=== PATIENT | male | born 1955 | race Caucasian/White ===

== ENCOUNTER → 2017-03-03 | Outpatient (CLI) | payer BC ==
--- NOTE | 2017-03-03 15:47 | CR ---
EXAMINATION: Left elbow HISTORY: Epicondylitis COMPARISON: None TECHNIQUE: 3 views FINDINGS/IMPRESSION: No acute osseous abnormality, effusion, dislocation, or fracture identified. Esteban ne mineralization and joint spaces appear preserved. Moderate soft tissue swelling overlying the ole cranon.
== END ==
LOC: MW.CHORTHO 07:27
PROVIDERS: ATTEND Physician Assistant
DX: M77.10 Lateral epicondylitis, unspecified elbow (principal); M79.89 Other specified soft tissue disorders
CPT/HCPCS: 73080-26-LT; 73080-LT

== ENCOUNTER 2017-11-11 10:58 | Emergency (ER) | payer BC ==
--- NOTE | 2017-11-11 11:15 | EDM.PDOC ---
ED HPI GENERAL MEDICAL PROBLEM - General Chief Complaint: Upper Extremity Injury/Pain Stated Complaint: LEFT HAND SWOLLEN Time Seen by Provider: 11/11/17 11:13 Source of Information: Reports: Patient History Limitations: Reports: No Limitations - History of Present Illness INITIAL COMMENTS - FREE TEXT/NARRATIVE: HISTORY AND PHYSICAL: []61-year-old gentleman presenting with left hand swollen and painful History of Present Illness: []Patient was rolling up straps yesterday and noticed erythema and pain today Review of Systems: As per history of present illness and below otherwise all systems reviewed and negative. Past medical history: As per history of present illness and as reviewed below otherwise noncontributory. Surgical history: As per history of present illness and as reviewed below otherwise noncontributory. Social history: No reported history of drug or alcohol abuse. Family history: As per history of present illness and as reviewed below otherwise noncontributory. Physical exam: Alert and oriented gentleman speaking in full sentences without any shortness of breath HEENT: Atraumatic, normocehpalic, pupils reactive, negative for conjunctival pallor or scleral icterus, mucous membranes moist, throat clear, neck supple, nontender, trachea midline. Lungs: Clear to auscultation, breath sounds equal bilaterally, chest non tender. Heart: S1S2, regular, negative for clicks, rubs, or JVD. Abdomen: Soft, nondistended, nontender. Negative for masses or hepatossplenmegaly. Negative for costovertebral tenderness. Pelvis: Stable nontender. Genitourinary: Deferred. Rectal: Deferred Extremities: Edema noted to the dorsum of his left hand with erythema painful when moving parents with palpation of pulses intact arthritic joints noted to his knuckles negative for cords or calf pain. Neurovascular unremarkable. Neuro: Awake, alert, oriented. Cranial nerves II through XII unremarkable. Cerebellum unremarkable. Motor and sensory unremarkable throughout. Exam nonfocal. Discussed with patient the risks no bony abnormalities such as fractures or dislocations Diagnostics: [CBC ESR CMP hand x-ray] Therapeutics: [] Impression: [Hand pain minor osteoarthritis] Plan: [Discharged home Tylenol arthritis [id number] Follow-up with your primary care provider] Definitive disposition and diagnosis as appropriate pending reevaluation and review of above. Onset: Today, Sudden Duration: Day(s): (1) Location: Reports: Upper Extremity, Left Quality: Reports: Ache Severity: Moderate Improves with: Reports: None Worsens with: Reports: None Associated Symptoms: Reports: No Other Symptoms left hand Pain Score (Numeric/FACES): 3 - Related Data Allergies Allergy/AdvReac Type Severity Reaction Status Date / Time No Known Allergies Allergy Verified 11/11/17 11:07 Home Meds: Home Meds Gabapentin [Neurontin] 300 mg PO DAILY PRN 08/24/15 [History] Omeprazole [priLOSEC OTC] 1 tab PO DAILY 08/24/15 [History] Hydrocodone/Acetaminophen [Hydrocodon-Acetaminoph 7.5-325] 1 tab PO DAILY PRN [History] Past Medical History Gastrointestinal History: Reports: GERD Neurological History: Reports: Other (See Below) Other Neuro History: RLS - Past Surgical History Musculoskeletal Surgical History: Reports: Other (See Below) Social & Family History - Tobacco Use Smoking Status *Q: Current Every Day Smoker Years of Tobacco use: 30 Packs/Tins Daily: 0.5 Second Hand Smoke Exposure: Yes - Recreational Drug Use Recreational Drug Use: No Review of Systems - Review of Systems Review Of Systems: ROS reveals no pertinent complaints other than HPI. ED EXAM, GENERAL - Physical Exam Exam: See Below (See dictation) Course - Vital Signs Last Recorded V/S: Last Vital Signs Temp 36.6 C 11/11/17 11:04 Pulse 77 11/11/17 11:04 Resp 18 11/11/17 11:04 BP 163/76 H 11/11/17 11:04 Pulse Ox 96 11/11/17 11:04 - Orders/Labs/Meds Labs: Laboratory Tests 11/11/17 11/11/17 Range/Units 11:21 11:21 WBC 10.67 (4.0-11.0) K/uL RBC 4.44 L (4.50-5.90) M/uL Hgb 14.3 (13.0-17.0) g/dL Hct 40.3 (38.0-50.0) % MCV 90.8 (80.0-98.0) fL MCH 32.2 H (27.0-32.0) pg MCHC 35.5 (31.0-37.0) g/dL RDW Std Deviation 43.3 (28.0-62.0) fl RDW Coeff of Rekha 13 (11.0-15.0) % Plt Count 299 (150-400) K/uL MPV 9.60 (7.40-12.00) fL Neut % (Auto) 77.6 (48.0-80.0) % Lymph % (Auto) 14.2 L (16.0-40.0) % [place]ath % (Auto) 7.0 (0.0-15.0) % Eos % (Auto) 1.0 (0.0-7.0) % Baso % (Auto) 0.2 (0.0-1.5) % Neut # (Auto) 8.3 H (1.4-5.7) K/uL Lymph # (Auto) 1.5 (0.6-2.4) K/uL Erath # (Auto) 0.8 (0.0-0.8) K/uL Eos # (Auto) 0.1 (0.0-0.7) K/uL Baso # (Auto) 0.0 (0.0-0.1) K/uL Nucleated RBC % 0.0 /100WBC Nucleated RBCs # 0 K/uL ESR 1 (0-19) mm/hr Sodium 141 (136-146) mmol/L Potassium 3.8 (3.5-5.1) mmol/L Chloride 110 (98-110) mmol/L Carbon Dioxide 21 (21-31) mmol/L BUN 22 (6.0-23.0) mg/dL Creatinine 0.9 (0.6-1.5) mg/dL Est Cr Clr Drug Dosing 76.80 mL/min Estimated GFR (MDRD) > 60.0 ml/min Glucose 141 H (60-110) mg/dL Calcium 9.6 (8.8-10.8) mg/dL Total Bilirubin 0.6 (0.1-1.5) mg/dL AST 19 (5-40) IU/L ALT 17 (8-54) IU/L Alkaline Phosphatase 50 (40-150) Total Protein 7.1 (6.0-8.0) g/dL Albumin 4.3 (3.4-4.8) g/dL Globulin 2.8 (2.0-3.5) g/dL Albumin/Globulin Ratio 1.5 (1.3-2.8) Departure - Departure Time of Disposition: 12:22 Disposition: Home, Self-Care 01 Condition: Good Clinical Impression: Hand pain, left - Discharge Information Referrals: Rob Fraga MD [Primary Care Provider] - Forms: ED Department Discharge Additional Instructions: The following information is given to patients seen in the emergency department who are being discharged to home. This information is to outline your options for follow-up care. We provide all patients seen in our emergency department with a follow-up referral. The need for follow-up, as well as the timing and circumstances, are variable depending upon the specifics of your emergency department visit. If you don't have a primary care physician on staff, we will provide you with a referral. We always advise you to contact your personal physician following an emergency department visit to inform them of the circumstance of the visit and for follow-up with them and/or the need for any referrals to a consulting specialist. The emergency department will also refer you to a specialist when appropriate. This referral assures that you have the opportunity for followup care with a specialist. All of these measure are taken in an effort to provide you with optimal care, which includes your followup. Under all circumstances we always encourage you to contact your private physician who remains a resource for coordinating your care. When calling for followup care, please make the office aware that this follow-up is from your recent emergency room visit. If for any reason you are refused follow-up, please contact the [facility] emergency department at and asked to speak to the emergency department charge nurse. No fractures or dislocations were noted on your examination Indications are osteoarthritis is present the activity of using your hand the day before likely cause this pain Would recommend [id number] Tylenol arthritis Follow-up with your primary care provider this week
--- NOTE | 2017-11-11 11:47 | CR ---
Left hand Clinical history: Pain Comparison: None Findings: 2 views of the hand demonstrate that the bones are normally mineralized and joint spaces ar e well-preserved. There is no focal significant acute finding. No significant arthropathy or trauma. Impression: No significant abnormalities
[2017-11-11 11:55] LABS: CHLORIDE,CL 110 mmol/L (98-110); SODIUM,NA 141 mmol/L (136-146)
[2017-11-11 12:39] VITALS: BP 127/72
== END 2017-11-11 12:35 | disposition home or self-care (01) ==
LOC: MW.ED 10:58
DX: M19.042 Primary osteoarthritis, left hand (principal); F17.210 Nicotine dependence, cigarettes, uncomplicated; Z79.899 Other long term (current) drug therapy
CPT/HCPCS: 36415; 73120-26-LT; 73120-LT; 80053; 85025; 85652; 99283

== ENCOUNTER 2019-02-11 08:21 | Day surgery (SDC) | payer SELFPAY, BC ==
[~2019-02-11 08:21] MED LIST: Acetaminophen/HYDROcodone 325-5 MG Tab PO PRN; Bupivacaine 0.25%/EPINEPHrine 1:200,000 10 ML SDV INJECT ONE; Lactated Ringers 1,000 ML IV SCH; Lidocaine 2% 5 ML SDV ONE; Midazolam 1 MG/ML 2 ML SDV ONE; Propofol 200 MG/20 ML SDV ONE; ceFAZolin 2 GM in Premix Bag 1 BAG IV ONE; fentaNYL 100 MCG/2 ML SDV ONE
--- NOTE | 2019-02-11 09:16 | PCM.PREANE ---
Preanesthetic Assessment - Anesthesia/Transfusion/Family Hx Anesthesia History: Prior Anesthesia Without Reaction Family History of Anesthesia Reaction: No Transfusion History: No Prior Transfusion(s) Intubation History: Unknown - Review of Systems General: No Symptoms Pulmonary: No Symptoms Cardiovascular: No Symptoms Gastrointestinal: No Symptoms Neurological: No Symptoms Other: Reports: None - Physical Assessment O2 Sat by Pulse Oximetry: 99 Respiratory Rate: 16 Vital Signs: Last Vital Signs Temp 36.1 C 02/11/19 08:40 Pulse 67 02/11/19 08:40 Resp 16 02/11/19 08:40 BP 155/72 H 02/11/19 08:40 Pulse Ox 99 02/11/19 08:40 Height: 1.65 m Weight: 67.132 kg ASA Class: 2 Mental Status: Alert & Oriented x3 Airway Class: Mallampati = 2 Dentition: Reports: Normal Dentition, [place]s) (multiple crowns upper front) Thyro-Mental Finger Breadths: 3 Mouth Opening Finger Breadths: 3 ROM/Head Extension: Full Lungs: Clear to Auscultation, Normal Respiratory Effort Cardiovascular: Regular Rate, Regular Rhythm - Allergies Allergies/Adverse Reactions: Allergies Allergy/AdvReac Type Severity Reaction Status Date / Time No Known Allergies Allergy Unverified 02/08/19 07:57 - Blood Blood Available: No - Anesthesia Plan Pre-Op Medication Ordered: None - Acknowledgements Anesthesia Type Planned: MAC Pt an Appropriate Candidate for the Planned Anesthesia: Yes Alternatives and Risks of Anesthesia Discussed w Pt/Guardian: Yes Pt/Guardian Understands and Agrees with Anesthesia Plan: Yes PreAnesthesia Questionnaire HEENT History: Reports: Other (See Below) Other HEENT History: wears glasses Cardiovascular History: Reports: Hypertension Respiratory History: Reports: None Gastrointestinal History: Reports: GERD (under controle with prilosec) Genitourinary History: Reports: BPH, Pyelonephritis, Other (See Below) Other Genitourinary History: H&P states recent UTI due to ESBL producing escherichia coli Musculoskeletal History: Reports: Fracture Other Musculoskeletal History: hx fx ankle, Neurological History: Reports: Other (See Below) Other Neuro History: restless legs Psychiatric History: Reports: None Endocrine/Metabolic History: Reports: None Hematologic History: Reports: None Immunologic History: Reports: None Oncologic (Cancer) History: Reports: None Dermatologic History: Reports: None - Infectious Disease History Infectious Disease History: Reports: Chicken Pox - Past Surgical History Head Surgeries/Procedures: Reports: None HEENT Surgical History: Reports: Naso-Sinus Surgery, Tonsillectomy Cardiovascular Surgical History: Reports: None Respiratory Surgical History: Reports: None GI Surgical History: Reports: Appendectomy, Colonoscopy, Hernia, Inguinal Male Surgical History: Reports: None Endocrine Surgical History: Reports: None Neurological Surgical History: Reports: None Musculoskeletal Surgical History: Reports: Shoulder Surgery Other Musculoskeletal Surgeries/Procedures:: rt shoulder surgery x2, lt shoulder surgery x2, manipulation of shoulder x1 Oncologic Surgical History: Reports: None Dermatological Surgical History: Reports: None - SUBSTANCE USE Smoking Status *Q: Current Every Day Smoker Tobacco Use Within Last Twelve Months: Cigarettes Recreational Drug Use History: No - HOME MEDS Home Medications: Home Meds Gabapentin [Neurontin] 300 mg PO BID PRN 08/24/15 [History] Omeprazole [priLOSEC OTC] 1 tab PO DAILY 08/24/15 [History] Aspirin [Lo-Dose Aspirin EC] 81 mg PO DAILY 02/08/19 [History] Bone & Joint 1 tab PO ASDIRECTED 02/08/19 [History] Hydrocodone/Acetaminophen [Hydrocodon-Acetaminophn 10-325] 1 tab PO BEDTIME [History] Meloxicam 15 mg PO DAILY 02/08/19 [History] Turmeric Root Extract [Turmeric] 500 mg PO DAILY 02/08/19 [History] Ubidecarenone [Coq-10] 200 mg PO DAILY 02/08/19 [History] amLODIPine [Norvasc] 5 mg PO DAILY 02/08/19 [History] valACYclovir HCl [valACYclovir] 1 gm PO DAILY 02/08/19 [History] - CURRENT (IN HOUSE) MEDS Current Meds: Current Medications Hydrocodone Bitart/Acetaminophen (Weiner 325-5 Mg) 1 tab PO Q4H PRN PRN Reason: Pain Lactated Ringer's (Ringers, Lactated) 1,000 mls @ 125 mls/hr IV ASDIRECTED [facility] Last Admin: 02/11/19 08:46 Dose: 125 mls/hr Discontinued Medications Bupivacaine HCl/Epinephrine Bitart (Marcaine 0.25%/Epinephrine 1:200,000) 10 ml INJECT ONETIME ONE Stop: 02/11/19 08:01 Fentanyl (Sublimaze) Confirm Administered Dose 100 mcg .ROUTE .STK-MED ONE Stop: 02/11/19 07:10 Cefazolin Sodium/Dextrose 2 gm (/ Premix) 50 mls @ 100 mls/hr IV ONETIME ONE Stop: 02/11/19 08:29 Lidocaine (Xylocaine-Mpf 2%) Confirm Administered Dose 5 ml .ROUTE .STK-MED ONE Stop: 02/11/19 07:09 Midazolam HCl (Versed 1 Mg/Ml) Confirm Administered Dose 2 mg .ROUTE .STK-MED ONE Stop: 02/11/19 07:10 Propofol (Diprivan 20 Ml) Confirm Administered Dose 400 mg .ROUTE .STK-MED ONE Stop: 02/11/19 07:10
[2019-02-11] MEDS ORDERED: Sodium Chloride 0.9% 20 ML ONE (09:41)
[2019-02-11] MEDS ORDERED: ceFAZolin 1 GM Vial ONE (09:41)
[2019-02-11] MEDS ORDERED: fentaNYL 100 MCG/2 ML SDV ONE ×2 (10:25→10:36)
[2019-02-11] MEDS ORDERED: Desflurane 240 ML Bottle ONE (10:49)
[2019-02-11] MEDS ORDERED: Bupivacaine 25%/EPINEPHrine/PF 30 ML ONE (11:34)
--- NOTE | 2019-02-11 12:21 | PCM.POSTAN ---
POST ANESTHESIA ASSESSMENT - MENTAL STATUS Mental Status: Alert, Oriented - RESPIRATORY Respiratory Status: Respiratory Rate WNL, Airway Patent, O2 Saturation Stable - CARDIOVASCULAR CV Status: Pulse Rate WNL, Blood Pressure Stable - GASTROINTESTINAL GI Status: No Symptoms - PAIN Pain Score: 0 - POST OP HYDRATION Hydration Status: Adequate & Stable - OBSERVATIONS Free Text/Narrative:: no anesthesia problems, patient skipped recovery room phase of postoperative care
[2019-02-11 14:25] VITALS: BP 136/84
--- NOTE | 2019-02-14 16:19 | PCM.OPNOTE ---
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 He has previously had an otoplasty and unfortunately remains undercorrected. This significantly bothers him and he would like it corrected more. Risks and benefits of bilateral otoplasty with yarsani of the superior andrew with posterior sutures were discussed with him. He was in agreement to proceed. Risks were including but not limited to bleeding infection damage to underlying or overlying structures possible need for future interventions possible scarring. Procedure details: After informed consent was obtained and placed on the chart the patient was brought to the operating theater and laid in the supine position. After adequate anesthesia was obtained and timeout was completed to confirm side and site in the area was prepped and draped in normal fashion. Once prepped and draped attention was then paid to anesthesia of bilateral ears and a ring block. Once adequately anesthetized with quarter percent Marcaine the planned incision line was marked over the previous incision itself. The scar was excised and dissection was carried down onto the cartilage at the undercorrected superior andrew. A 27-gauge needle was then placed through the crease itself to allow appropriate pin back of the superior ear to desired correction. Once this was completed the posterior markings for the needle puncture through the marked in an elliptical fashion for appropriate excision. Attention was then paid to excision of the cartilage after removal of the needle. The cartilage was excised in elliptical fashion and brought together using a 4.0 clear Prolene undyed to restore the andrew itself. Once appropriately restored attention was then paid to meticulous hemostasis and closure of the skin using a 5-0 chromic in a horizontal mattress fashion. The symmetry procedure was completed on the opposite ear and once adequately closed he was dressed with Xeroform for the incisions fluffed behind enough off in front of the ear and a 2 inch Kobe wrap for very light compression. Patient tolerated this well and all counts and needles were correct at the end of the case. Follow-up: The patient tolerated some see us in approximately 1 week, sooner if any problems questions or concerns. He was given a prescription for pain control if needed.
== END 2019-02-11 12:20 | disposition home or self-care (01) ==
LOC: MW.SDS 08:21
PROVIDERS: ATTEND Plastic Surgery
DX: Q17.5 Prominent ear (principal); I10 Essential (primary) hypertension; N40.0 Benign prostatic hyperplasia without lower urinary tract symptoms; F17.210 Nicotine dependence, cigarettes, uncomplicated; Z79.82 Long term (current) use of aspirin; Z79.891 Long term (current) use of opiate analgesic; Z79.1 Long term (current) use of non-steroidal anti-inflammatories (NSAID); Z79.899 Other long term (current) drug therapy
CPT/HCPCS: 69300; J0690; J2001; J2250; J2704; J3010; J7120; 00120

== ENCOUNTER 2022-01-24 06:28 | Day surgery (SDC) | payer MEDICARE, BC ==
[2022-01-24] MEDS ORDERED: Lactated Ringers 1,000 ML IV SCH ×2 (06:30→08:30)
[2022-01-24] MEDS ORDERED: Propofol 200 MG/20 ML SDV ONE ×2 (07:21→08:16)
[2022-01-24] MEDS ORDERED: fentaNYL 100 MCG/2 ML SDV ONE (07:21)
[2022-01-24] MEDS ORDERED: Albuterol 0.083% 2.5 MG/3 ML Neb Soln ONE (07:39)
[2022-01-24] MEDS ORDERED: Albuterol 0.083% 2.5 MG/3 ML Neb Soln NEB ONE (07:40)
[2022-01-24 08:42] VITALS: PULSE 59
[2022-01-24 09:36] VITALS: BP 130/66
== END 2022-01-24 09:00 | disposition home or self-care (01) ==
LOC: MW.SDS 06:28
PROVIDERS: ATTEND Surgery
DX: Z12.11 Encounter for screening for malignant neoplasm of colon (principal); I10 Essential (primary) hypertension; F32.A Depression, unspecified; F17.210 Nicotine dependence, cigarettes, uncomplicated; R07.89 Other chest pain; M19.90 Unspecified osteoarthritis, unspecified site; Z72.89 Other problems related to lifestyle; Z90.49 Acquired absence of other specified parts of digestive tract; Z98.890 Other specified postprocedural states; Z90.89 Acquired absence of other organs; Z80.0 Family history of malignant neoplasm of digestive organs; Z79.82 Long term (current) use of aspirin; Z79.899 Other long term (current) drug therapy
CPT/HCPCS: G0105; J2704; J3010; J7120